=== PATIENT | female | born 1955 | race Caucasian/White ===

== ENCOUNTER 2018-11-16 06:14 | Day surgery (SDC) | payer OTHER ==
[2018-11-15 08:41] VITALS: BMI 25.7
--- NOTE | 2018-11-16 07:32 | HP ---
History & Physical Update - History History: No Change - Physical Physical: No Change - Assessment Assessment: No Change - Plan Plan: No Change (Consent signed and witnessed, all questions answered H&P is up- to-date)
[2018-11-16] MEDS ORDERED: MIDAZOLAM HCL 2 MG/2 ML SINGLE DOSE VIAL ONE (07:37)
[2018-11-16] MEDS ORDERED: oxyCODONE HCL 5 MG TABLET PO PRN (07:40)
[2018-11-16] MEDS ORDERED: ONDANSETRON 4 MG/2 ML VIAL IVPUSH PRN (07:40)
[2018-11-16] MEDS ORDERED: IBUPROFEN 800 MG/8 ML IJ IVPB PRN (07:40)
[2018-11-16] MEDS ORDERED: IBUPROFEN 600 MG TABLET (FP) PO PRN (07:40)
--- NOTE | 2018-11-16 07:40 | OP ---
Operative Note - Note: Operative Date: 11/16/18 Pre-Operative Diagnosis: 63yo P1 with Thick Endometrium Operation: Hysteroscopy Findings: Anterior wall polypoid fibroid, ~ 2cm Post-Operative Diagnosis: Same as Pre-op Surgeon: Ketty Lang Anesthesiologist/[employer] REGISTRAR: Jagdeep Soni Anesthesia: MAC Estimated Blood Loss (mls): 5 Drains & Tubes with Location: Fluid deficit 0cc Drains, Volume Out (mls): 400 Fluid Volume Replaced (mls): 500 Operative Report Dictated: Yes
[2018-11-16] MEDS ORDERED: ELECTROLYTE-148 SOLN 1,000 ML IV SCH (07:45)
[2018-11-16 12:30] VITALS: BP 122/72; PULSE 65; TEMP 97.4
--- NOTE | 2018-11-17 17:51 | PATH ---
Surgical Pathology Report Patient Name: PANCHO SOLOMON [facility]. Rec. #: [id number] /Age/Gender: 1955 (Age: 63) / F Account: [id number] Location: [facility] SURGICAL Taken: 11/16/2018 Received: 11/16/2018 Reported: 11/17/2018 Physicians: Ketty Lang M.D. Specimen(s) Received ENDOMETRIAL CURETTINGS AND POLYO /FIBROID Clinical History Pelvic pain/endometrial Postoperative diagnosis: Polyps Final Diagnosis ENDOMETRIAL CURETTINGS AND POLYP/FIBROID, EXCISION: FRAGMENTS OF ENDOMETRIAL POLYP. 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 SEPARATE SCANTY STRIPS OF ENDOMETRIAL GLANDS WITHOUT STROMA. Electronically Signed Jose Fritz M.D. Gross Description Received in formalin, labeled "endometrial curettings and polyp/fibrotic" are multiple owens portions of soft tissue measuring 1.0 x 1.0 x 0.2 cm in aggregate. The specimens are submitted in toto in one cassette. MISBAH/11/17/2018 karlo/11/17/2018
--- NOTE | 2018-11-19 13:02 | OP ---
DATE OF OPERATION: 11/16/2018 PREOPERATIVE DIAGNOSIS: A 63-year-old para 1 with thick endometrium. POSTOPERATIVE DIAGNOSIS: A 63-year-old para 1 with thick endometrium and finding of endometrial polyp approximately 2 cm. OPERATION: Hysteroscopy, polypectomy, dilation and curettage. SURGEON: Mehdi Slaughter MD ANESTHESIOLOGIST: MD Nae ANESTHESIA: MAC. DESCRIPTION OF OPERATIVE PROCEDURE: After ensuring informed consent, the patient was brought to the operating room where she was placed in dorsal lithotomy position. Perineum and vagina were prepped and draped in sterile fashion. The Symphion hysteroscope was assembled and wide balanced and primed. The vagina was retracted with Lamb retractors. Cervix visualized, articulated with single-tooth tenaculum, and gradually dilated with Robert dilators. The Symphion hysteroscope was introduced without any difficulty, and fundal polyp was noted and resected with Symphion resectoscope without any difficulty. Subsequently, all instruments were removed from the uterus, cervix, and vagina. Excellent hemostasis was achieved. Estimated blood loss 5 mL. Fluid deficit 0. Drains, urine output was drained with straight catheter 400 mL, and the patient received 500 mL of IV fluids. All instruments and sponge count was correct x2. The patient was brought to the recovery room in stable condition. MEHDI SLAUGHTER M.D. [id number]
== END 2018-11-16 11:40 | disposition home or self-care (01) ==
LOC: JASU-SURG 06:14
PROVIDERS: ATTEND Obstetrics & Gynecology
PROC: 0UJD8ZZ Inspection of Uterus and Cervix, Via Natural or Artificial Opening Endoscopic (ICD-10-PCS; 2018-11-16)
PROC: 0UB97ZX Excision of Uterus, Via Natural or Artificial Opening, Diagnostic (ICD-10-PCS; principal; 2018-11-16 07:30)
PROC: 0UDB7ZX Extraction of Endometrium, Via Natural or Artificial Opening, Diagnostic (ICD-10-PCS; 2018-11-16 07:30)
DX: N84.0 Polyp of corpus uteri (principal); I10 Essential (primary) hypertension; E03.9 Hypothyroidism, unspecified
CPT/HCPCS: 88305-TC; 94760